=== PATIENT | female | born 1940 | race Caucasian/White ===

== ENCOUNTER 2024-09-14 13:14 | Outpatient (CLI) | payer OTHER | END 2024-09-14 13:18 | disposition home or self-care (01) | LOC: SONOGRAMA 13:14 | PROVIDERS: ATTEND Pathology Anatomic Pathology & Clinical Pathology | DX: E04.9 Nontoxic goiter, unspecified (principal); D34 Benign neoplasm of thyroid gland; E07.89 Other specified disorders of thyroid ==